=== PATIENT | male | born 1995 | race Caucasian/White ===

== ENCOUNTER 2018-07-30 18:33 | Emergency (ER) | payer OTHER, MEDICAID ==
[~2018-07-30] VITALS: Ht 203.2 cm; Wt 65.0 kg
[2018-07-30 18:37] VITALS: BP 135/70
[2018-07-30] MEDS ORDERED: ALBU05 IH (18:42)
== END 2018-07-30 19:16 | disposition left against medical advice (07) ==
LOC: ER 18:33
DX: R06.02 Shortness of breath (principal); Z53.21 Procedure and treatment not carried out due to patient leaving prior to being seen by health care provider